=== PATIENT | female | born 1960 | race Caucasian/White ===

== ENCOUNTER 2024-01-27 09:04 | Outpatient (CLI) | payer BC ==
[2024-01-27 11:15] LABS: Bilirubin Neg (Negative); Blood, Urine Negative (Negative); Clarity Clear (Clear); Glucose, Urine (Dipstick) Normal (Negative); Ketone, Urine Negative (Negative); Leukocyte Negative (Negative); Nitrite Negative (Negative); Protein, Urine (Dipstick) Negative (Neg-Trace); Urobilinogen Normal mg/dL (Less than 2)
[2024-01-27 11:19] LABS: #Monocytes 0.7 10x3/uL (0.0-1.1); #Neutrophils 3.2 10x3/uL (1.5-8.4); %Basophils 0.2 % (0.0-2.0); %Lymphocytes 28.4 % (18.0-47.0); Hematocrit 41.6 % (34.9-44.5); Hemoglobin 14.3 g/dL (12.0-15.5); Mean Corpuscular HGB CONC 34.4 g/dL (32.0-36.0); Mean Corpuscular Hemoglobin 29.3 pg (27.0-33.0); Mean Corpuscular Volume 85.2 fl (81.6-98.3); Mean Platelet Volume 10.9 fl (7.4-10.4); Platelet Count 277 10x3/uL (150-450); RBC Distribution Width 13.6 % (11.5-14.5); Red Blood Cell (RBC) Count 4.88 10x6/uL (3.90-5.03); White Blood Cell (WBC) Count 5.4 10x3/uL (3.5-10.5)
[2024-01-27 11:39] LABS: INR-International Normal Ratio 0.9; Prothrombin Time 9.8 sec (9.5-12.1)
[2024-01-27 11:51] LABS: Anion Gap 13 mmol/L (10-20); BUN (Urea Nitrogen) 10 mg/dL (9.8-20.1); Calc. Creatinine Clearance 0 mL/min (70-130); Calcium 9.1 mg/dL (7.8-10.44); Carbon Dioxide 23 mmol/L (23-31); Chloride 106 mmol/L (98-107); Estimated GFR 100; Glucose 102 mg/dL (80-115); Potassium 4.3 mmol/L (3.5-5.1); Sodium 138 mmol/L (136-145)
== END 2024-01-27 09:05 | disposition home or self-care (01) ==
LOC: LABBT 09:04
PROVIDERS: ATTEND Orthopaedic Surgery
DX: Z01.818 Encounter for other preprocedural examination (principal); M17.12 Unilateral primary osteoarthritis, left knee
CPT/HCPCS: 71046; 80048; 81003; 85025; 85610; 86850; 86900; 86901; 87081; 93005; 93010

== ENCOUNTER 2024-02-01 05:47 | Observation (INO) | payer BC ==
[2024-01-27 10:07] VITALS: BMI 30.6
[2024-01-27 11:15] LABS: Bilirubin Neg (Negative); Blood, Urine Negative (Negative); Clarity Clear (Clear); Glucose, Urine (Dipstick) Normal (Negative); Ketone, Urine Negative (Negative); Leukocyte Negative (Negative); Nitrite Negative (Negative); Protein, Urine (Dipstick) Negative (Neg-Trace); Urobilinogen Normal mg/dL (Less than 2)
[2024-01-27 11:19] LABS: #Monocytes 0.7 10x3/uL (0.0-1.1); #Neutrophils 3.2 10x3/uL (1.5-8.4); %Basophils 0.2 % (0.0-2.0); %Lymphocytes 28.4 % (18.0-47.0); Hematocrit 41.6 % (34.9-44.5); Hemoglobin 14.3 g/dL (12.0-15.5); Mean Corpuscular HGB CONC 34.4 g/dL (32.0-36.0); Mean Corpuscular Hemoglobin 29.3 pg (27.0-33.0); Mean Corpuscular Volume 85.2 fl (81.6-98.3); Mean Platelet Volume 10.9 fl (7.4-10.4); Platelet Count 277 10x3/uL (150-450); RBC Distribution Width 13.6 % (11.5-14.5); Red Blood Cell (RBC) Count 4.88 10x6/uL (3.90-5.03); White Blood Cell (WBC) Count 5.4 10x3/uL (3.5-10.5)
[2024-01-27 11:39] LABS: INR-International Normal Ratio 0.9; Prothrombin Time 9.8 sec (9.5-12.1)
[2024-01-27 11:51] LABS: Anion Gap 13 mmol/L (10-20); BUN (Urea Nitrogen) 10 mg/dL (9.8-20.1); Calc. Creatinine Clearance 0 mL/min (70-130); Calcium 9.1 mg/dL (7.8-10.44); Carbon Dioxide 23 mmol/L (23-31); Chloride 106 mmol/L (98-107); Estimated GFR 100; Glucose 102 mg/dL (80-115); Potassium 4.3 mmol/L (3.5-5.1); Sodium 138 mmol/L (136-145)
[2024-02-01] MEDS ORDERED: Tranexamic Acid 1,000 MG/10 ML VIAL ONE (06:08)
[2024-02-01] MEDS ORDERED: Vancomycin 1 GM/200 ML (FROZEN) BAG ONE (06:08)
[2024-02-01] MEDS ORDERED: Sodium Chloride 0.9% 100 ML ONE ×3 (06:08→07:40)
[2024-02-01] MEDS ORDERED: Bupivacaine PF 0.5% 30 ML VIAL ONE ×2 (06:23→07:51)
[2024-02-01] MEDS ORDERED: PROPOFOL 20 ML ONE (06:24)
[2024-02-01] MEDS ORDERED: fentaNYL PF 100 MCG/2 ML SYRINGE ONE ×2 (06:24→07:14)
[2024-02-01] MEDS ORDERED: Midazolam HCl 2 mg/2 ml Vial ONE (06:24)
[2024-02-01] MEDS ORDERED: CEFAZOLIN 2 GM VIAL ONE (06:53)
[2024-02-01] MEDS ORDERED: Ondansetron PF 4 MG/2 ML Vial ONE (07:17)
[2024-02-01] MEDS ORDERED: Dexamethasone 4 mg/ml Vial ONE (07:17)
[2024-02-01] MEDS ORDERED: Metoclopramide HCl 10 MG (2 mL) VIAL ONE (07:17)
[2024-02-01] MEDS ORDERED: ePHEDrine Sulfate 50 MG/10 ML VIAL ONE (07:34)
[2024-02-01] MEDS ORDERED: Phenylephrine 10 MG/ML VIAL ONE (07:40)
[2024-02-01] MEDS ORDERED: EPINEPHrine 1 MG/ML VIAL ONE (07:51)
[2024-02-01] MEDS ORDERED: Lidocaine 1% (PF) 30 ML VIAL ONE (07:51)
[2024-02-01] MEDS ORDERED: fentaNYL 50 mcg/mL 1 mL Vial SLOW IVP PRN (07:57)
[2024-02-01] MEDS ORDERED: oxyCODONE 5 MG TAB PO PRN ×2 (07:58→07:59)
[2024-02-01] MEDS ORDERED: Ondansetron PF 4 MG/2 ML Vial IVP PRN ×2 (08:00→09:14)
[2024-02-01] MEDS ORDERED: Promethazine HCl 25 MG/ML VIAL IM PRN ×2 (08:00→09:14)
[2024-02-01] MEDS ORDERED: Ropivacaine 0.2% 550 ML 550 ML NERVE BLCK SCH (08:00)
[2024-02-01] MEDS ORDERED: Zolpidem Tartrate 5 MG TAB PO PRN ×2 (08:00→09:14)
[2024-02-01] MEDS ORDERED: Ondansetron HCl/PF 4 MG/2 ML Vial IVP PRN (08:37)
[2024-02-01] MEDS ORDERED: diphenhydrAMINE 25 MG CAP PO PRN (09:14)
[2024-02-01] MEDS ORDERED: Acetaminophen 325 MG TAB PO PRN (09:14)
[2024-02-01] MEDS ORDERED: fentaNYL 50 mcg/mL 1 mL Vial ONE ×3 (09:22→09:52)
[2024-02-01] MEDS ORDERED: Lidocaine 2% 6 ML (Jelly) SYR ONE (11:20)
[2024-02-01] MEDS: Acetaminophen 500 MG TAB PO SCH (11:43)
[2024-02-01] MEDS: Sodium Chloride 0.9% 1,000 ML IV SCH (11:43)
[2024-02-01] MEDS: Ketorolac Tromethamine 30 MG (1 mL) VIAL IVP SCH (12:07)
[2024-02-01] MEDS: traMADol HCl 50 MG TAB PO PRN (12:08)
[2024-02-01] MEDS: Tranexamic Acid 1,000 MG in Sodium Chloride 0.9% 100 ML IVPB SCH (12:09)
[2024-02-01] MEDS: CEFAZOLIN 2 GM in Sodium Chloride 0.9% 100 ML IVPB SCH (15:24)
[2024-02-01] MEDS: Vancomycin (BATCH) 1.5 GM in Premix 1 BAG IVPB SCH (18:42)
[2024-02-01] MEDS: Trospium 20 MG TAB PO SCH (20:57)
[2024-02-01] MEDS: Senokot S 8.6-50 MG TAB PO SCH (20:57)
[2024-02-01] MEDS: Aspirin 81 mg Enteric Coated Tablet PO SCH (20:58)
[2024-02-01] MEDS: Venlafaxine HCl XR 150 MG CAP PO SCH (20:58)
[2024-02-01] MEDS: Ferrous Gluconate 324 MG TAB PO SCH (20:58)
[2024-02-01] MEDS: Propranolol 10 MG TAB PO SCH (20:58)
[2024-02-01] MEDS: Atorvastatin Calcium 10 MG TAB PO SCH (20:58)
[2024-02-02 05:00] LABS: Hematocrit 35.2 % (36.0-47.0); Hemoglobin 11.7 g/dL (12.0-16.0); Mean Corpuscular HGB CONC 33.2 g/dL (32.0-36.0); Mean Corpuscular Hemoglobin 29.3 pg (27.0-31.0); Mean Corpuscular Volume 88.2 fl (78.0-98.0); Platelet Count 232 10x3/uL (130-400); RBC Distribution Width 13.7 % (11.5-14.5); Red Blood Cell (RBC) Count 3.99 mill/uL (4.20-5.40)
[2024-02-02 07:27] VITALS: BP 145/75; TEMP 98.4
[2024-02-02] MEDS: Multivitamin W/ Minerals 1 TAB PO SCH (08:48)
[2024-02-02] MEDS: Loratadine 10 MG TAB PO SCH (08:48)
[2024-02-02] MEDS: traMADol HCl 50 MG TAB PO PRN (08:55)
== END 2024-02-02 15:40 | disposition home or self-care (01) ==
LOC: SDC 05:47 → SJJU 10:19
PROVIDERS: ADMIT Orthopaedic Surgery; ATTEND Orthopaedic Surgery
PROC: 0SRD0JZ Replacement of Left Knee Joint with Synthetic Substitute, Open Approach (ICD-10-PCS; principal; 2024-02-01)
DX: M17.12 Unilateral primary osteoarthritis, left knee (principal); I10 Essential (primary) hypertension; E78.5 Hyperlipidemia, unspecified; F32.A Depression, unspecified; Z90.710 Acquired absence of both cervix and uterus; Z88.5 Allergy status to narcotic agent; Z91.018 Allergy to other foods; Z79.899 Other long term (current) drug therapy
CPT/HCPCS: 36415; 80048; 81003; 85025; 85027; 85610; 86850; 86900; 86901; 87081; A4306; C1713; C1776; J0171; J0665; J1100; J1885; J2001; J2250; J2371; J2405; J2704; J2765; J2795; J3010; J3370; J3370-JW; J3490; J7050